=== PATIENT | male | born 1950 | race Caucasian/White ===

== ENCOUNTER → 2017-03-21 | Outpatient (CLI) | payer OTHER ==
[~2017-03-21] VITALS: Ht 180.3 cm; Wt 105.4 kg
[~2017-03-21] MED LIST: ALBU18002 INH; ASPI81TA28 PO; BUPR-79 PO; CARV6.252 PO; CHOL1000 PO; CYAN500T PO; HYDR50CA PO; INSDGIPEN SQ; LOSA1TAB PO; LPT40 PO; METF750T PO; NTRSLP4 SL; PANT40TA PO; PLV75 PO; TRAM-10 PO
[2017-03-21 14:04] VITALS: BP 136/89; PULSE 73; Ht 180.3 cm; Wt 105.4 kg
== END | disposition home or self-care (01) ==
LOC: C.NEUR 13:21
PROVIDERS: ATTEND Internal Medicine Pulmonary Disease
DX: R06.83 Snoring (principal); R53.83 Other fatigue; I10 Essential (primary) hypertension; G25.5 Other chorea; F43.10 Post-traumatic stress disorder, unspecified

== ENCOUNTER → 2017-05-01 | Outpatient (CLI) | payer OTHER ==
--- NOTE | 2017-05-02 06:40 | PAP/PSG TECHNICIAN REPORT ---
[facility] French Cord Binder Polysomnogram Report Study name: None Report date: 05/02/2017 Study date: 05/01/2017 Referring Physician: DR. DOWNEY Name: HORACIO VILLALPANDO Interpreting Physician: Adi Downey M.D. Date of : 1950 French Cord Binder: Kristina Lopes [facility]. Sex: Male Age: 66 Study Type: PSG Weight: 232 lbs 18 in Height: 66 years, Height 5' 11" Neck Circum: BMI: 32.35 Medications: CARVEDILOL 12.5 MG, CLOPIDOGREL 75 MG, COZAAR 25 MG, FERROUS SULFATE 325 MG, GLUCOPHAGE 750 MG, HYDROXYZINE 50 MG, LANTUS 100 UNIT/ML, LIPITOR 80 MG, NITROGLYCERIN 0.4 MG, PROTONIX 40 MG, SYMBICORT 160-4.5 MCG/ACT, VENTOLIN HFA Patient History 66 yr-old male here for a baseline study. He has a history of PTSD, night sweats, vivid dreams, snoring, and restless sleep. His [place] scale is 9. The test was started on room air. ETCO2 testing is included in this study. Room 3 Parameters Monitored NPSG: E1-M2, E2-M1, Fp1-M2, Fp2-M1, F3-M2, F4-M2, F4-M1, C3-M2, C4-M2, C4-M1, O1-M2, O2-M2, O2-M1, T3-M2, T4-M1, P3-M2, P4-M1, CHIN1, CHIN2, HR, EKG, Legs, PFLOW, SNOR, FLOW, CFLOW, Tidal Volume, THOR, ABDO, SpO2, PLTH, CPRESS, ETCO2 Wave, ETCO2, pH Sleep Architecture Sleep Stages Time at Lights Off 10:52:20 PM STAGES Time (min.) TST (%) Time at Lights On 5:36:50 AM Wake 70.5 -- Total Recording Time (TRT) 404.50 min. N1 37.0 11 Total Sleep Period (TSP) 383.5 min. N2 226.0 68 Total Sleep Time (TST) 334.0min. N3 0.0 0 Awake Time 70.5 min. REM 71.0 21 Wake after Sleep Onset 49.5 min. Sleep Efficiency (SE) 83 % Sleep Onset Latency (KEITH) 21.0 min. Number of Stage 1 Shifts None Awakenings 11 Stage Changes 60 Number of REM periods 4 REM 71.0 21 REM Latency 72.0 min. NREM 263.0 79 Body Position Analysis Supine Right Left Side Prone Vertical Total Sleep Time (min.) 69.0 198.5 81.5 280.00 0.0 0.0 Total Sleep Time (%) 16% 59% 24% 84 0% N/A% Total Sleep Time REM (min.) 0.0 55.5 15.5 None 0.0 0.0 Total Sleep Time NREM (min.) 54.0 143.0 66.0 None 0.0 0.0 Intermittent Wake (min.) 15.0 29.3 26.1 None 0.0 0.0 Total Sleep Period (%) 15% None None None None None Arousals Myoclonus (PLM) * Events Count Index Events Count Index Spontaneous 42 8 Events Awake (PLMW) 126 107.2 Respiratory 7 1.3 Events Asleep w/ Arousal (PLMA) 4 0.7 PLM 4 1 Events Asleep w/o Arousal (PLMS) 225 40.4 Snoring 7 1 Total Asleep 229 41.1 Total 60 11 Total 355 53 Respiratory Analysis * CA OA MA CH H RERA Total Count 1 1 0 0 29 4 31 Index 0.2 0.2 0.0 0 5.2 1 6.3 Mean Duration 17.5 14.4 0.0 0.00 19.7 19.0 19.4 Longest Duration 17.5 14.4 0.0 0.00 0.0 19.4 45.4 Respiratory Event Summary Total Supine ~Supine Right Left Prone REM NREM Apneas Count 2 1 1 0 1 N/A 1 1 Index 0.4 1 0 0.0 0.7 N/A 1 0 Hypopneas (4% Desat) Count 29 4 25 12 13 N/A 15 14 Index 5.2 4.4 5 3.6 9.6 N/A 12.7 3.2 Apneas & All Hypopneas Count 31 5 26 12 14 N/A 16 15 Index 5.6 6 6 4 10 N/A 13.5 3.4 Respiratory Events (Soft Top Installer+All Hyp+RERA) Count 31 5 30 13 17 N/A 16 15 Index 6.3 6 6 3.9 12.5 N/A 16.1 3.7 Respiratory Related Arousal Count 7 5 6 2 4 N/A 5 2 Index 1.3 1 1 1 3 N/A 4 0 Snoring Analysis Supine Right Left Prone REM NREM Total Snore duration 32.3 min Snores count 404 488 655 N/A 195 1,352 1,547 Snore mean duration 1.3 Sec Snores index 449 148 482 N/A 164.8 308.4 277.9 TST with snoring (%) 9.7% SpO2 Analysis Total REM NREM Awake <50% 0.0 min. 0.0 min. 0.0 min. 0.0 min. 51 - 60% 0.0 min. 0.0 min. 0.0 min. 0.0 min. 61 - 70% 0.0 min. 0.0 min. 0.0 min. 0.0 min. 71 - 80% 0.0 min. 0.0 min. 0.0 min. 0.0 min. 81 - 90% 196.5 min. 46.4 min. 139.7 min. 10.4 min. 91 - 100% 201.5 min. 24.6 min. 123.3 min. 53.6 min. Average 91 90 90 92 Minimum SpO2 84 84 87 86 Desaturation Event Index 9.0 17.7 5.2 15.3 # Desat. Events below 89% 27 14 8 5 Time(%) with Saturation below 89% 8.7 5.5 2.7 0.5 Time(min.) with Saturation below 89% 34.5 21.9 10.6 2.0 Heart Rate Analysis End Tidal CO2 Analysis Min (bpm) Max (bpm) Average (bpm) TSP (mins) % of TSP Awake 55 127 65 Above 55 mmHg 0.0 0.0 NREM 58 75 64 50-55 mmHg 0.0 0.0 REM 59 75 66 45-50 mmHg 0.0 0.0 Overall 58 75 65 40-45 mmHg 35.7 10.7 35-40 mmHg 146.0 43.7 30-35 mmHg 64.6 19.4 Average ETCO2 0.3 Supplemental O2 Values Minimum O2 level: None Value Start Time End Time French Cord Binder Comments Mr. Villalpando slept in the right, left, and supine positions. No cardiac arrhythmias were noted. PLMs were noted. No bruxism noted. Snoring was noted and scored as a 2-3 on a scale of 1 through 5. (0=no snoring, 5=snoring loud enough to be heard through a closed door or down the [facility] way). He awoke to use the restroom one time during the night. Mr. Villalpando stated that he slept about the same as usual. The final report will be interpreted and signed by a sleep physician. The completed physician report will then be placed in the patient medical record. Therapy (cm H2O) 0 TIB (min.) 404.5 TST (min.) 334.0 Sleep Onset (min.) 21.0 REM Onset From Sleep (min.) 72.0 Sleep Efficiency % 83 Wakefulness (%) 17 Wakefulness (min.) 70.5 NREM 1 (%) 11 NREM 1 (min.) 37.0 NREM 2 (%) 68 NREM 2 (min.) 226.0 NREM 3 (%) 0 NREM 3 (min.) 0.0 REM (%) 21 REM (min.) 71.0 # Arousals 60 Arousal Index 11 # Snore 1,547 Snore Index 277.9 AHI 5.6 AHI Supine 6 AHI Non-Supine 6 NREM AHI 3.4 REM AHI 13.5 RDI 6.3 # Obstructive Apnea 1 # Central Apnea 1 # Mixed Apnea 0 # Hypopneas 29 RERAs 4 Total Respiratory Events 35 Time Below SpO2 89% (min.) 32.5 Mean NREM SpO2 (%) 90 Mean REM SpO2 (%) 90 Mean Sleep SpO2 (%) 90 Min NREM SpO2 (%) 87 Min REM SpO2 (%) 84 Position Supine (min.) 69.0 Position Non-supine (min.) 280.0 LM Index Sleep 41.1 LM Index NREM 37.4 LM Index REM 54.9 Mean Heart Rate (bpm) 65 Min Heart Rate (bpm) 58
--- NOTE | 2017-05-03 15:02 | POLYSOMNOGRAPH REPORT ---
CLINICAL DATA: A 66-year-old male referred by myself and Dr. Euceda with history of post-traumatic stress disorder, night sweats, vivid dreams, snoring, restless sleep along with possible choreoathetotic movements at night. His [place] Sleepiness Score was 9/24. SLEEP ARCHITECTURE: Total sleep period was 383.5 minutes. Total sleep time was 334 minutes divided between 263 minutes of non-REM sleep and 71 minutes of REM sleep. Sleep onset latency was 21 minutes. REM latency was 72 minutes. Sleep efficiency was 83%. Wake after sleep onset was 49.5 minutes. Sleep consisted of stage N1 11%, N2 68%, REM 21%. AROUSAL DATA: Sixty arousals were recorded for an index of 11 per hour. Forty-two were spontaneous arousals. PLM DATA: 229 limb movements during sleep were noted for an index of 41.1 per hour with arousal index of 0.7 per hour. RESPIRATORY DATA: Mild sleep apnea was documented. The AHI was 5.6. The RDI was 6.3. There was 1 central and 1 obstructive apneic episode. The longest duration of apnea was 17.5 seconds. There were 29 hypopneic episodes. The mean duration of hypopnea was 19.7 seconds. There were 4 RERAs. The longest RERA was 19.4 seconds. OXIMETRY DATA: Very mild nocturnal hypoxemia was seen. Oxygen alysha was 84%. Mean saturation was 91%. EKG: Heart rates ranged from 58-75 beats per minute. No arrhythmias were noted. PIPE COVERER'S COMMENTS: The patient slept in the right, left, and supine positions. Snoring was moderate, rated 2-3 on a scale of 1 through 5. PLMs were noted throughout the night without significant arousal. No gross extremity movements were noted. IMPRESSION: Mild sleep apnea/hypopnea with an AHI of 5.6 and an RDI of 6.3 with nocturnal hypoxemia and frequent limb movements during sleep. RECOMMENDATIONS: The patient may benefit from use of an oral appliance or a repeat sleep study with CPAP. Clinical correlation is needed. FABIANAD
== END | disposition home or self-care (01) ==
LOC: C.NEUR 21:00
PROVIDERS: ATTEND Internal Medicine Pulmonary Disease
DX: G25.5 Other chorea (principal); R53.83 Other fatigue; I10 Essential (primary) hypertension; F43.10 Post-traumatic stress disorder, unspecified; R06.83 Snoring